=== PATIENT | female | born 1990 | race African-American/Black ===

== ENCOUNTER → 2021-04-04 | Outpatient (REF) | payer OTHER | LOC: M WUC 23:12 | PROVIDERS: ATTEND Physician Assistant | DX: S61.202A Unspecified open wound of right middle finger without damage to nail, initial encounter (principal); W18.30XA Fall on same level, unspecified, initial encounter; Y92.009 Unspecified place in unspecified non-institutional (private) residence as the place of occurrence of the external cause ==